=== PATIENT | female | born 1990 | race Caucasian/White ===

== ENCOUNTER 2020-06-28 21:09 | Emergency (ER) | payer OTHER ==
[2020-06-29] MEDS ORDERED: Flexeril PO (00:07)
[2020-06-29] MEDS ORDERED: IBUPROFEN600 MG PO (00:07)
== END 2020-06-29 00:45 | disposition home or self-care (01) ==
LOC: ER1 21:09
DX: S16.1XXA Strain of muscle, fascia and tendon at neck level, initial encounter (principal); S40.012A Contusion of left shoulder, initial encounter; Z88.0 Allergy status to penicillin; V49.50XA Passenger injured in collision with unspecified motor vehicles in traffic accident, initial encounter; Y92.410 Unspecified street and highway as the place of occurrence of the external cause
CPT/HCPCS: 70450; 71045; 72070; 72125; 73030; 73590; 99284